=== PATIENT | female | born 1985 | race American Indian/Alaskan Native ===

== ENCOUNTER 2017-06-02 18:52 | Emergency (ER) | payer MEDICAID, OTHER ==
[~2017-06-02] VITALS: Ht 162.6 cm; Wt 85.7 kg
[~2017-06-02 18:52] MED LIST: MINOCYCLINE HC100 MG PO; SPIRONOLACTONE50 MG PO
== END 2017-06-02 19:40 | disposition home or self-care (01) ==
LOC: ED 18:52
DX: J11.1 Influenza due to unidentified influenza virus with other respiratory manifestations (principal); F17.200 Nicotine dependence, unspecified, uncomplicated; Z79.899 Other long term (current) drug therapy
CPT/HCPCS: 99282

== ENCOUNTER 2020-04-20 03:16 | Emergency (ER) | payer OTHER ==
[~2020-04-20] VITALS: Ht 162.6 cm; Wt 84.4 kg
--- NOTE | 2020-04-20 13:52 | EKG ---
[facility] [address] [facility] [place] [address] Signed Normal sinus rhythm Normal ECG When compared with ECG of 10-NOV-2018 22:04, Nonspecific T wave abnormality, improved in Inferior leads Nonspecific T wave abnormality no longer evident in Anterolateral leads Confirmed by AGUSTO LUBIN MD ([id number]) on 04/20/2020 1:52:30 PM Electronically Signed By: AGUSTO LUBIN MD 04/20/20 1352 PATIENT NAME: KASSYNIYARUBEN BORDEN Electrocardiogram DATE OF : 87 PHYSICIAN: AGUSTO LUBIN MD REPORT #: [id number] REPORT IS CONFIDENTIAL AND NOT TO BE RELEASED WITHOUT AUTHORIZATION
== END 2020-04-20 04:44 | disposition home or self-care (01) ==
LOC: ED 03:16
DX: R07.89 Other chest pain (principal); Z87.891 Personal history of nicotine dependence
CPT/HCPCS: 71046; 80053; 83735; 84484; 85025; 85379; 93005; 93010; 99285-25; A9270

== ENCOUNTER 2024-07-11 07:28 | Day surgery (SDC) | payer OTHER ==
[2024-07-09 10:45] VITALS: BP 114/79
[~2024-07-11] VITALS: Ht 162.6 cm; Wt 89.5 kg
[~2024-07-11 07:28] MED LIST changes: +CEFAZOLIN SODIUM 2 GM/20 ML SYR IV SCH; +DEXAMETHASONE SOD PHOS 4 MG/ML VIAL ONE; +FAMOTIDINE 20 MG/ 2 ML VIAL ONE; +HEParin SOD (PORCINE) 5,000 UNIT/ML SDV SUB-Q SCH; +IBLOOD GLUCOSE TEST STRIP 1 EA TEST VI PRN; +KETOROLAC TROMETHAMINE 30 MG/ML VIAL ONE; +LACTATED RINGER'S 1,000 ML IV ONE; +LACTATED RINGER'S 1,000 ML IV SCH; +LIDOCAINE HCL 1% 5 ML SDV INJ ONE; +METOCLOPRAMIDE HCL 10 MG/2 ML SDV ONE; +MIDAZOLAM HCL 2 MG/2 ML VIAL ONE; +fentaNYL citrate 100 MCG/2 ML VIAL ONE; +ondansetron HCL 4 MG/2 ML VIAL ONE; +propofoL 200 MG/20 ML VIAL ONE
--- NOTE | 2024-07-11 07:38 | NUR ---
PT NOT AVAILABLE FOR VISIT. PROVIDED PRAYER.
[2024-07-11 07:40] VITALS: BP 123/62
[2024-07-11] MEDS ORDERED: fentaNYL citrate 50 MCG/ML SDV IV PRN (08:15)
[2024-07-11] MEDS ORDERED: ondansetron HCL 4 MG/2 ML VIAL IV PRN ×2 (08:15→10:30)
[2024-07-11] MEDS ORDERED: PROCHLORPERAZINE EDISYLATE 10 MG/2 ML VIAL IV PRN ×2 (08:15→10:30)
[2024-07-11] MEDS ORDERED: MORPHINE SULFATE 10 MG/ML VIAL IV PRN (08:15)
[2024-07-11] MEDS ORDERED: IBLOOD GLUCOSE TEST STRIP 1 EA TEST VI PRN (08:15)
[2024-07-11] MEDS ORDERED: droPERidol 5 MG/2 ML VIAL IV PRN (08:15)
[2024-07-11] MEDS ORDERED: METOCLOPRAMIDE HCL 10 MG/2 ML SDV IV PRN (08:15)
[2024-07-11] MEDS ORDERED: NALOXONE HCL 0.4 MG SYR IV PRN ×2 (08:15→10:30)
[2024-07-11] MEDS ORDERED: ACETAMINOPHEN 1,000 MG/100 ML VIAL ONE (09:24)
[2024-07-11] MEDS ORDERED: HYDROmorphone HCL 1 MG/ML SYR IV PRN (10:30)
[2024-07-11] MEDS ORDERED: OXYCODONE HCL 5 MG TAB PO PRN (10:30)
--- NOTE | 2024-07-11 10:36 | NUR ---
PT ARRIVES TO DS DEPT FROM PACU VIA STRETCHER. PT REPORTS PAIN IS TOLERABLE AT 05/04, ICE PACK IN PLACE. SITE DRESSING IS C/D/I, NO SIGNS OF BLEEDING AT THIS TIME. REPORT RECEIVED FROM KRYSTLE CHRISTIAN. ICE WATER, APPLESAUCE, AND CRACKERS PROVIDED, PT TOLERATING WITHOUT DIFFICULTY SWALLOWING. PT ON RA W/O2>90%, PT RESPIRATIONS EVEN AND UNLABORED, NO SIGNS OF DISTRESS. CALL LIGHT WITHIN REACH, PT REPORTS NO FURTHER QUESTIONS OR NEEDS AT THIS TIME.
[2024-07-11 10:37] VITALS: BP 113/62
--- NOTE | 2024-07-11 10:47 | NUR ---
07/11/24 1047 SamLiane haddad 1007 PT ARRIVED IN PACU NON RESPONSIVE TO NOXIOUS STIMULI. CHIN LIFT HELD BY RN. 1011 PT REACTIVE AND ABLE TO KEEP AIRWAY OPEN WITH OUT CHIN LIFT. 1015 ICE TO R ARMPIT. 1020 VISITING WITH STAFF. NO C/O'S. 1030 DR AT BEDSIDE. ALL QUESTIONS ANSWERED. 1036 TO DS. REPORT GIVEN TO RN.
--- NOTE | 2024-07-11 11:20 | NUR ---
IN PT ROOM FOR PAIN ASSESSMENT. PT REPORTS NEED TO URINE VOID AT THIS TIME. PT SITS AT BEDSIDE AND REPORTS NO DIZZINESS/NAUSEA. PT STANDS AT BEDSIDE, GAIT IS STEADY. THIS RN STANDBY ASSIST TO RESTROOM FOR URINE VOID OF 500 ML CLEAR/YELLOW URINE. PT BACK TO ROOM AND GETTING DRESSED AT THIS TIME. CALL LIGHT WITHIN REACH.
[2024-07-11 11:34] VITALS: BP 121/79
--- NOTE | 2024-07-11 11:40 | NUR ---
THIS RN IN ROOM FOR DC EDUCATION. PT STATES VERBAL UNDERSTANDING TO DC EDUCATION AT THIS TIME. PT STATES NO FURTHER QUESTIONS AT THIS TIME. PT OFF OF UNIT VIA WC TO PASSENGER SIDE OF AUNT'S VEHICLE. ALL BELONGINGS IN PT POSSESSION AT THIS TIME. ICE PACK AND ICE WATER PROVIDED. PT STATES NO FURTHER QUESTIONS OR NEEDS AT THIS TIME.
[2024-07-11] MEDS ORDERED: SEVOFLURANE 250 ML BTL INH ONE (16:35)
--- NOTE | 2024-07-12 06:27 | OR ---
[facility] [address] [place], [place] [address] Signed DATE OF OPERATION: 07/11/2024 SURGEON: Priti Peter MD PREOPERATIVE DIAGNOSIS: Right axillary mass/accessory breast tissue in nipple (5 x 7 cm). POSTOPERATIVE DIAGNOSIS: Right axillary mass/accessory breast tissue in nipple (5 x 7 cm). PROCEDURE: Excision of right axillary mass/accessory breast tissue and nipple. ESTIMATED BLOOD LOSS: Minimal. INDICATIONS: Carmen is a 39-year-old female, who was asked to see me with a right axillary mass. She told me six years ago when she was for her son this area swelled and she had milk coming out of a small area. She put a rubber band over that area and it stopped the milk. After she was done breast-feeding and never resolved the size. It is about the size of a tennis ball. She said it is right in the crease of her axilla and it is causing her issues on a daily basis. She mentioned it to her drill press operator for metal. The ultrasound was not particularly concerning. I had sent her for a mammogram and it was unremarkable. I explained to her the concept of supernumerary/accessory nipples and breast tissue in mammals. She decided because of the size, she wanted to have it removed. She understands this will be a day surgery and she will go home afterwards. There is risk including, but not limited to bleeding, infection, scarring, change in contour of the skin, recurrent tissue in the same or other areas. She had expressed understanding and wished to proceed. DESCRIPTION OF PROCEDURE: I met with Carmen in our preop area. We could easily identify the large mass in the right axilla with myself and the nurse. We marked that appropriately. After this we took Carmen into the operating room and placed in a supine position. She was placed under general endotracheal tube anesthesia. She was given preoperative antibiotics along with subcutaneous heparin. SCDs were utilized. She was prepped and draped in the usual sterile fashion. We used an oblique elliptical incision in the axilla to excise the lesion. It measured out about 5 x 7 cm and the incision was 11.5 x 4.5 cm. The entire area was excised and she had just a little extra tissue that was indurated Electronically Signed By: PRITI PETER MD 07/12/24 0627 PATIENT NAME: CARMEN ELENA OPERATIVE REPORT DATE OF : [birth year] REPORT #: [id number] PHYSICIAN: PRITI PETER MD PCP: NO PRIMARY CARE PHYSICIAN REPORT IS CONFIDENTIAL AND NOT TO BE RELEASED WITHOUT AUTHORIZATION [facility] [address] [place], [place] [address] Signed somewhat laterally. Then, we took some of that as well. The surrounding tissue was quite pliable and soft and appeared to be usual subcutaneous adipose tissue. We marked the specimen appropriately including the nipple. We passed it off the field for pathologic review along with that additional section. We then injected local anesthetic into the wound. The wound was irrigated and suctioned out until clear. We closed the dermis with multiple interrupted 3-0 subcuticular Monocryl sutures. The skin edges were reapproximated with a running 5-0 fast absorbing plain gut suture. Dry gauze and tape were then applied. She was then awakened from anesthesia, extubated in the OR, and taken to recovery room in stable condition. Priti Peter MD ALB/MODL /[id number] cc: Priti Peter MD [facility] Copies: PRITI PETER MD [facility] ~ Electronically Signed By: PRITI PETER MD 07/12/24 0627 PATIENT NAME: CARMEN ELENA OPERATIVE REPORT DATE OF : [birth year] REPORT #: [id number] PHYSICIAN: PRITI PETER MD PCP: NO PRIMARY CARE PHYSICIAN REPORT IS CONFIDENTIAL AND NOT TO BE RELEASED WITHOUT AUTHORIZATION
--- NOTE | 2024-07-16 14:01 | PATH ---
[facility] [address] [place], [place] [address] Signed SPECIMEN(S): A RIGHT BREAST, RIGHT AXILLARY MASS SPECIMEN(S): B ADDITIONAL RIGHT AXILLARY MASS SPECIMEN SOURCE: A. RIGHT BREAST, RIGHT AXILLARY MASS B. ADDITIONAL RIGHT AXILLARY MASS CLINICAL HISTORY: Long stitch lateral, short stitch superior, double stitch is nipple. FINAL PATHOLOGIC DIAGNOSIS: A. Designated "right axillary mass/breast tissue and nipple": - Benign skin, breast, and fibroadipose tissue; negative for invasive or in situ carcinoma B. Designated "additional excision right axillary mass": - Breast tissue; negative for invasive or in situ carcinoma COMMENT: No gross or microscopic mass lesions are identified. Correlation with the operative impression is needed. [facility] MICROSCOPIC EXAMINATION: Histologic sections of all submitted blocks are examined by light microscopy. These findings, together with the gross examination, support the pathologic diagnosis. GROSS DESCRIPTION: A. The specimen, labeled and designated "Vita Turner, " and designated on the requisition "right axillary mass/breast tissue and nipple," is received in formalin and consists of 135 gram oriented portion of yellow-mccormick fibroadipose tissue that is 9.5 x 8.7 x 3.6 cm and has a ellipse of skin that is 10.3 x 8.6 cm. The skin surface is mccormick-brown and wrinkled with an area of hypopigmentation that is 0.7 x 0.7 cm and contains a black suture identifying the location of the nipple. A short suture is present and identifies the superior margin; a long suture identifies the lateral margin. The specimen is inked as follows: superior - blue; inferior - green; medial - red; lateral - orange; anterior -skin; posterior - black, the area of hypopigmentation on the skin is inked yellow. The PATIENT NAME: NIYA TURNER PATHOLOGY DATE OF : [birth year] REPORT #: [id number] PHYSICIAN: LONA PATHOLOGY PCP: NO PRIMARY CARE PHYSICIAN REPORT IS CONFIDENTIAL AND NOT TO BE RELEASED WITHOUT AUTHORIZATION [facility] [address] [place], [place] [address] Signed specimen is serially sectioned from medial to lateral to reveal approximately 80% of the specimen is a yellow-mccormick greasy adipose tissue and 20% is a pink rubbery fibrous tissue. No discrete mass lesions are grossly identified. Upon palpation of the lateral aspect of the breast no lymph nodes are grossly identified. [employer] sections are submitted in 10 cassettes. Cassette Summary: (A1) area of hypopigmentation identified is nipple on skin, sectioned (A2) fibroadipose tissue deep to nipple (A3-A4) fibroadipose tissue upper inner quadrant (A5-A6) fibroadipose tissue upper outer quadrant (A7-A8) fibroadipose tissue lower outer quadrant (A9-A10) fibroadipose tissue lower inner quadrant Time of collection: 9 PM July 11 2024. Time into formalin: 9 PM July 11 2024. Processor load time: 12 PM July 12, 2024. Total fixation time in formalin: 15 hours The ASCO/CAP guidelines related to HER2 and hormone receptor testing in breast specimens have been met and the specimen has been placed in formalin within one hour and fixed in 10% neutral buffered formalin for 6 to 72 hours. B. The specimen, labeled and designated "Vita Turner, " and designated on the requisition "additional extension right axillary mass," is received in formalin and consists of 6 g unoriented portion of yellow-mccormick fibroadipose tissue that is 3.4 x 3.2 x 1.3 cm. Specimen is inked and serially sectioned revealing approximately 80% of the specimen is yellow-mccormick greasy adipose tissue and 20% is a pink-white rubbery fibrous tissue. No discrete mass lesions are grossly identified. The specimen is entirely submitted consecutively with full cross-sections in each cassette, B1-B13, with bisected cross-sections in B6-B7, B8-B9, B10-B11. Time of collection: 9 PM July 11 2024. Time into formalin: 9 PM July 11 2024. Processor load time: 12 PM July 12, 2024. Total fixation time in formalin: 15 hours The ASCO/CAP guidelines related to HER2 and hormone receptor testing in breast specimens have been met and the specimen has been placed in formalin within one hour and fixed in 10% neutral buffered formalin for 6 to 72 hours. FB (under the direct supervision of a pathologist) PATIENT NAME: NIYA TURNER PATHOLOGY DATE OF : [birth year] REPORT #: [id number] PHYSICIAN: LONA PATHOLOGY PCP: NO PRIMARY CARE PHYSICIAN REPORT IS CONFIDENTIAL AND NOT TO BE RELEASED WITHOUT AUTHORIZATION [address] [address] Signed The Gross Description was prepared using a voice recognition system. The report was reviewed for accuracy; however, sound-alike word errors, addition and/or deletions may occur. If there is any question about this report, please contact Client Services. ADDITIONAL NOTES: Immunohistochemical and/or in situ hybridization studies if performed in this case included appropriate positive controls that reacted as expected. This test was developed and its performance characteristics determined by [facility]. It has not been cleared or approved by the U.S. Food and Drug Administration. The FDA has determined that such clearance or approval is not necessary. This test is used for clinical purposes. It should not be regarded as investigational or for research. [facility] is certified under the Clinical Laboratory Improvement Amendments of 1988 (CLIA) as qualified to perform high complexity clinical laboratory testing. PERFORMING LABORATORY: Technical component was performed by [facility], [address] [place] [id number] (CLIA# [id number]). Professional interpretation was performed by [facility], [address] [place] [address] (CLIA# [id number]). Diagnostician: Gonzalo Hassan MD Pathologist Electronically Signed 07/16/2024 Copies: ~ PATIENT NAME: NIYA TURNER PATHOLOGY DATE OF : [birth year] REPORT #: [id number] PHYSICIAN: ALEXANDALEXA PATHOLOGY PCP: NO PRIMARY CARE PHYSICIAN REPORT IS CONFIDENTIAL AND NOT TO BE RELEASED WITHOUT AUTHORIZATION
== END 2024-07-11 11:40 | disposition home or self-care (01) ==
LOC: DS 07:28
PROVIDERS: ATTEND Colon & Rectal Surgery
PROC: 0JBD0ZZ Excision of Right Upper Arm Subcutaneous Tissue and Fascia, Open Approach (ICD-10-PCS; principal; 2024-07-11 09:00)
DX: R22.31 Localized swelling, mass and lump, right upper limb (principal); Q83.3 Accessory nipple; F17.210 Nicotine dependence, cigarettes, uncomplicated; Z80.3 Family history of malignant neoplasm of breast
CPT/HCPCS: 01710; 88305; 88307; J0131; J0690; J1100; J1644; J1885; J2250; J2405; J2704; J2765; J3010; J7121

== ENCOUNTER 2025-02-07 15:56 | Observation (INO) | payer OTHER ==
[~2025-02-07] VITALS: Ht 162.6 cm; Wt 83.7 kg
[~2025-02-07 15:56] MED LIST changes: -CEFAZOLIN SODIUM 2 GM/20 ML SYR IV SCH; -DEXAMETHASONE SOD PHOS 4 MG/ML VIAL ONE; -FAMOTIDINE 20 MG/ 2 ML VIAL ONE; -HEParin SOD (PORCINE) 5,000 UNIT/ML SDV SUB-Q SCH; -IBLOOD GLUCOSE TEST STRIP 1 EA TEST VI PRN; -KETOROLAC TROMETHAMINE 30 MG/ML VIAL ONE; -LACTATED RINGER'S 1,000 ML IV ONE; -LACTATED RINGER'S 1,000 ML IV SCH; -LIDOCAINE HCL 1% 5 ML SDV INJ ONE; -METOCLOPRAMIDE HCL 10 MG/2 ML SDV ONE; -MIDAZOLAM HCL 2 MG/2 ML VIAL ONE; +SEVOFLURANE 250 ML BTL INH ONE; -fentaNYL citrate 100 MCG/2 ML VIAL ONE; -ondansetron HCL 4 MG/2 ML VIAL ONE; -propofoL 200 MG/20 ML VIAL ONE
[2025-02-07 17:27] LABS: BASOPHILS 0.5 % (0.1-1.2); EOSINOPHILS 0.5 % (0.7-5.8); LYMPHOCYTES 18.6 % (19.3-51.7); MCH 25.2 PG (25.6-32.2); MCHC 31.6 g/dL (32.2-35.5); MCV 79.5 fL (79.4-94.8); MONOCYTES 5.4 % (4.7-12.5); NEUTROPHILS 74.7 % (34.0-71.1); RBC 4.97 M/uL (3.93-5.22)
[2025-02-07 17:50] LABS: ALT (SGPT) 52.0 U/L (14-59); AST (SGOT) 15.0 U/L (15-37); GLOMERULAR FILTRATION RATE,EST 116.0 mL/min (>60); PROTEIN, TOTAL 7.9 g/dL (6.4-8.2); UREA NITROGEN 3.0 mg/dL (7-18)
[2025-02-07] MEDS ORDERED: HYDROmorphone HCL 1 MG/ML SYR IV PRN (20:30)
[2025-02-07] MEDS ORDERED: DEXTROSE 5% - LACTATED RINGERS 1,000 ML IV SCH (20:30)
[2025-02-07] MEDS ORDERED: PIPERACILLIN/TAZOBACTAM 4.5 GM in DEXTROSE 5% 100 ML IV SCH (21:00)
[2025-02-07] MEDS ORDERED: FAMOTIDINE 20 MG/ 2 ML VIAL IV SCH (21:00)
[2025-02-07 21:59] VITALS: BP 119/68
--- NOTE | 2025-02-07 22:30 | NUR ---
pt ARRIVED TO THE FLOOR VIA WHEEL CHAIR. pt ABLE TO GET UP AND WALK TO THE BED. ASSESSMENT AND VITAL SIGNS DONE. ADMISSION DONE. IV ASSESSED, WNL. IVF INFUSING PER ORDER. pt DENIES ANY PAIN AT THIS TIME. pt DENIES ANY OTHER NEEDS AT THIS TIME. CALL LIGHT WITHIN REACH. pt SCORED A MODERATE RISK ON THE SUICIDE SEVERITY SCALE DUE TO LIFE TIME QUESTION 6. pt CURRENTLY DENIES THOUGHTS OF SELF HARM. PER ALGORITHM LICENSED PROVIDER TO DETERMINE IF FURTHER SUICIDE ASSESSMENT NEEDS TO BE DONE.
[2025-02-07 22:59] LABS: CORONAVIRUS COVID-19 AG NEGATIVE (NEGATIVE)
[2025-02-08] VITALS (19 sets, daily range): BP systolic 101–123; BP diastolic 55–72
--- NOTE | 2025-02-08 00:15 | NUR ---
pt RESTING IN THE BED WITH EYES CLOSED. RR EVEN AND UNLABORED. CALL LIGHT WITHIN REACH.
--- NOTE | 2025-02-08 01:30 | NUR ---
IN RM TO DO VITAL SIGNS. pt PROVIDED WITH MOUTH SWABS TO HELP WITH HER DRY MOUTH. pt DENIES ANY OTHER NEEDS AT THIS TIME. CALL LIGHT WITHIN REACH.
--- NOTE | 2025-02-08 03:27 | NUR ---
pt RESTING IN THE BED. pt DENIES ANY NEEDS AT THIS TIME. pt STATE HER PAIN IS TOLERABLE AT THIS TIME. CALL LIGHT WITHIN REACH.
[2025-02-08 05:45] LABS: ALT (SGPT) 41.0 U/L (14-59); AST (SGOT) 15.0 U/L (15-37); GLOMERULAR FILTRATION RATE,EST 117.0 mL/min (>60); PROTEIN, TOTAL 7.2 g/dL (6.4-8.2); UREA NITROGEN 5.0 mg/dL (7-18)
[2025-02-08 06:18] LABS: BLOOD/HGB, URINE NEGATIVE (Negative); KETONE, URINE TRACE (Negative); LEUK ESTERASE, URINE NEGATIVE (negative); NITRITE, URINE NEGATIVE (negative)
--- NOTE | 2025-02-08 06:45 | NUR ---
CALLED ABOUT pt MODERATE SUICIDE RISK DUE TO QUESTION 6. STATES SHE WILL TALK TO pt AFTER THE SURGERY.
--- NOTE | 2025-02-08 07:50 | NUR ---
RECEIVED REPORT FROM ANAHI LEVIN. PATIENT RESTING IN BED ASKING ABOUT A SIP OF WATER. EDUCATED PATIENT TO NOT DRIK/EAT ANYTHING DUE TO ASPIRATION RISK FRO SURGERY. NO OTHER NEEDS A THIS TIME, CALL LIGHT IN REACH, WHITEBOARD UPDATED.
--- NOTE | 2025-02-08 09:17 | NUR ---
UR CLINICAL REVIEW: LORIE, MEETS OBS FOR GALLBLADDER INFLAMMATION CT POSITIVE FOR ACUTE CHOLECYSTITIS, N/V/D, NPO, IV MEDS, SURGERY PLANNED FOR TODAY. [facility] OBS 02/07/2025 @ 2025 ORDER MATCHES REG NO AUTH REQUIRED FOR OBS PER MEDICAID RULES PLAN TO DC TO HOME WHEN MEDICALLY READY. 02/09/2025
[2025-02-08] MEDS ORDERED: GAS-X125 M1 PO (09:28)
[2025-02-08] MEDS ORDERED: PEPTO-BISM262 MG/15 PO (09:29)
--- NOTE | 2025-02-08 09:29 | NUR ---
MED REC COMPLETE
[2025-02-08] MEDS ORDERED: LIDOCAINE HCL 2% 5 ML SDV ONE (09:47)
[2025-02-08] MEDS ORDERED: MIDAZOLAM HCL 2 MG/2 ML VIAL ONE (09:47)
[2025-02-08] MEDS ORDERED: ROCURONIUM BROMIDE 50 MG/5 ML SYR ONE (09:47)
[2025-02-08] MEDS ORDERED: fentaNYL citrate 100 MCG/2 ML VIAL ONE (09:48)
[2025-02-08] MEDS ORDERED: ACETAMINOPHEN 1,000 MG/100 ML VIAL ONE (10:31)
[2025-02-08] MEDS ORDERED: KETOROLAC TROMETHAMINE 30 MG/ML VIAL ONE (10:40)
[2025-02-08] MEDS ORDERED: LIDOCAINE HCL 1% 30 ML SDV ONE (10:40)
[2025-02-08] MEDS ORDERED: DEXAMETHASONE SOD PHOS 4 MG/ML VIAL ONE (10:40)
[2025-02-08] MEDS ORDERED: SUGAMMADEX SODIUM 200 MG/2 ML ML ONE (10:50)
--- NOTE | 2025-02-08 11:23 | NUR ---
INTO SEE PATIENT. PERSONAL HEALTH INFORMATION REVIEWED. PATIENT SISTER AT BEDSIDE. 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 LIVES IN A HOUSE WITH A FEW STEPS IN. PATIENT DOES NOT HAVE DME. DOES DRIVE. DENIES ANY DIFFCULTY PAYING UTLITIES OR OBTAINING FOOD. PATIENT FAMILY TO DRIVE HER HOME WHEN MEDICALLY CLEARED FROM SURGERY. NO CM NEEDS.
[2025-02-08] MEDS ORDERED: HYDROCODONE/ACETA 5/325 TAB PO PRN (12:15)
--- NOTE | 2025-02-08 12:19 | NUR ---
02/08/25 Sheela9 Mattie Hurley 1209- PT ARRIVES TO PACU, SEMI [place] POSITION, NON REACTIVE TO STIMULUS. OPA IN PLACE, BREATHING EVEN AND NON LABORED, LR INFUSING TO RAC IV. ABD SOFT, NON DISTENDED, 4 LAP SITES WITH DRESSINGS CDI. ALL MONITORS IN PLACE.
[2025-02-08] MEDS ORDERED: HYDROmorphone HCL 1 MG/ML SYR IV PRN (12:30)
[2025-02-08] MEDS ORDERED: fentaNYL citrate 50 MCG/ML SDV IV PRN (12:30)
[2025-02-08] MEDS ORDERED: IBLOOD GLUCOSE TEST STRIP 1 EA TEST VI PRN (12:30)
[2025-02-08] MEDS ORDERED: NALOXONE HCL 0.4 MG SYR IV PRN (12:30)
--- NOTE | 2025-02-08 12:50 | NUR ---
RECIEVED REPORT FROM FEDERICO, WINDY AWAKE IN BED. VSS. WATER AND CRACKERS GIVEN. PT DENIES CURRENT NEEDS, DENIES PAIN/NAUSEA AT THIS TIME. CALL LIGHT WITHIN REACH, CPOX IN PLACE, FAMILY AT THE BEDSIDE.
--- NOTE | 2025-02-08 13:59 | NUR ---
Pt's sister came to the nurses station to ask about prescriptions that the pt will be discharged with. She states that the [facility] pharmacy closes today at 5pm and they aren't open tomorrow and wonders if Dr. Francis might be willing to send the prescription in now so they can pick it up today. outpatient clerk Sabine Damico called Dr. Francis who requested we ask Dr. Dash if he would be willing to prescribe [place] 5/325 (see order in emar) for this pt so her family can pick it up today while the pharmacy is open. Dr. Dash will do this. Family updated.
[2025-02-08] MEDS ORDERED: HYDROCODON-ACE1 EA10 PO (14:07)
--- NOTE | 2025-02-08 14:15 | NUR ---
PATIENT LAYING IN BED, VSS. PT REQUESTING PAIN MED FOR ABDOMEN, GIVEN. PT TOLERATED CRACKERS WELL, NO NAUSEA. PT GIVEN SANDWICH BOX, JUICE, AND PUDDING. EDUCATED TO EAT SLOW AND TO STOP WITH ANY FEELING OF NAUSEA OR PAIN. PT ALSO EDUCATED TO CALL US WHEN GETTING UP FOR THE FIRST TIME AFTER PROCEDURE. NO OTHER NEEDS AT THIS TIME CALL LIGHT IN REACH.
--- NOTE | 2025-02-08 15:19 | NUR ---
PT UP TO BATHROOM WITH THIS RN AND ANAHI BORGES. PT REPORTS NO DIZZINESS OR NAUSEA WITH MOVEMENT. PT STATES PAIN WENT DOWN TO A 2 AFTER PAIN MED. PT TOLERATED SANDWICH TRAY WITH NO REPORTS OF NAUSEA OR PAIN. NO NEEDS AT THIS TIME, CALL LIGHT IN REACH.
--- NOTE | 2025-02-08 18:24 | NUR ---
PATIENT IN BED AT THISTIME. SUPERVISOR SHEARING CHARTED VITALS AND I&O'S. SUPERVISOR SHEARING ASSISTED PATIENT TO BATHROOM. CALL LIGHT WITHIN REACH, NO FURTHER NEEDS.
--- NOTE | 2025-02-08 19:43 | NUR ---
PT A&O X4, PLEASANT AND COOPERATIVE, WITH ASSESSMENT. IVF INFUSING RAC. 3 ABD LAP SIATES CDI. FAINT SHELTON, NOT PASSING GAS, ON ROOM AIR, LUNGGS CLEAR BILAT, POST OP CPOC AT BEDSIDE, SCDS IN PLACE. WANTS TO GO FOR A WALK, MEDICATED WITH 1 NORCO, WILL GIVE SECOND NORCO ON RETURN FROM WALK
--- NOTE | 2025-02-08 20:17 | NUR ---
walked up and down the lower and upper nursing station twice. tolerated fair. c/o abd pain on return 08/02, medicated with second norco. back to bed, tolerated good, has voided, no c/o n/v at this time. scds and psot op cpox on. Sister at bedside rooming in.
--- NOTE | 2025-02-08 20:43 | NUR ---
Up to BRP, voided QS, tolerated well, 1PA, back to bed. scds and post op cpox on at bedside, IVF infusing w/o problems
--- NOTE | 2025-02-08 23:25 | NUR ---
pt c/o back shoulder pain and r frontal chest pain, "Robin making a complaint is a side effects from the pain meds as I got two pills earlier. my chest hurt and i cant take a breat. Cpox at bedside, sats 99-100%. pulse 60's, BP wnl. good hand property master. no resp distress noted, anxious RT notified and will call Dr Interiano
--- NOTE | 2025-02-08 23:29 | NUR ---
RT in room
--- NOTE | 2025-02-08 23:37 | NUR ---
EKG WNL. DR Francis NOTIFIED VIA PHONE. NEW ORDERS FOR MAALOX 30CC Q6H PRN ABD PAIN AND OK FOR EKG.. PER MD" GAS PAIN AFTER LAP SURGERY WILL GIVE YOU SHOULDER PAIN AND WHAT APPEARS CHEST PAIN". PT ANXIOUS
[2025-02-08] MEDS ORDERED: MAGNESIUM HYDROXIDE/AL HYDROX 30 ML CUP PO PRN (23:45)
--- NOTE | 2025-02-08 23:47 | NUR ---
PT REASSURED FOR SEVERAL MINUTES, EXPLAINED WHAT TO EXPECT AFTER A LAP EMMA. EXPLAINED SEVERAL TIMES, CALMER. DECLINED ICE OR WARM PADS. WILL CONTINUE TO REASSURE. NO FURTHER C/O CHESTP PAIN IVF INFUSING. SCDS IN PLACE. POST OP CPOX AT BEDSIDE, PT TOLERATING LIQUIDS WELL. NO C/O NV. WILL MEDICATED WITH MAALOX HER REQUESTS
--- NOTE | 2025-02-09 00:04 | NUR ---
medicated with Maalax per abd pain
--- NOTE | 2025-02-09 00:07 | NUR ---
Pt c/o feeling nauseated, medicated with 2.5mg IV Compazine per n/v. Pt ambulated hallways, tolerated well, back to bed, scds in place, cpox at bedside, no c/o pain. Up to brp, voided,
[2025-02-09 01:41] VITALS: BP 105/65
--- NOTE | 2025-02-09 01:43 | NUR ---
AWAKE, NO FURTHER C/O N/V, STATED 'I CAN FEEL THE GAS ROLLING IN", DENIES PASSING GAS AT THIS TIME. C/O ABD PAIN. MEDICATED WITH 1 NORCO 6/10 ABD PAIN. COOPERATIVE WITH SECOND ASSESSMENT AND VITALS, TOLERATING FLUIDS. SCDS IN PLACE
--- NOTE | 2025-02-09 01:48 | NUR ---
AWAKE, PLAYING WITH PHONE, NO FURTHER C/O PAIN, IVF INFUSING, TOLERATING LIQUIDS WELL, NO C/O N/V, DENIES FURTHER C/O CHEST, SHOULDER OR ABD PAIN AT THIS TIME, DENIES PASSING GAS OR BURPING. SCDS IN PLACE, REPOSITIONS SELF IN BED. MORE CALMER. SISTER ROOMING IN
--- NOTE | 2025-02-09 03:57 | NUR ---
Uses call light. Up to BRP, 1PA voided QS yellow urine. Walked up and down nursing station twice, tolerated well, denies need for pain meds at this time. Not passing gas or burping, Back to bed, tolerated well. ice to abd. Repositions self in bed. SCD's off at this time
[2025-02-09 06:28] VITALS: BP 107/62
--- NOTE | 2025-02-09 06:29 | NUR ---
MANAGING DIRECTOR ATLAS OBTAINED VITALS AND I&O. PT STATES NO NEEDS AT THIS TIME. CALL LIGHT WITHIN REACH.
[2025-02-09 06:45] VITALS: BP 107/62
--- NOTE | 2025-02-09 07:10 | NUR ---
RECIEVED REPORT FROM ANAHI HENLEY. PT IS RESTING IN BED WITH EYES OPEN. FAMILY MEMBER IS AT BEDSIDE. CALL LIGHT AND PERSONAL BELONGINGS ARE WITHIN REACH.
--- NOTE | 2025-02-09 08:09 | NUR ---
PATIENT IN BED AT THIS TIME. JUNIOR SYSTEMS ENGINEER CHARTED HOURLY ROUNDS. CALL LIGHT WITHIN REACH, NO FURTHER NEEDS.
[2025-02-09 08:52] VITALS: BP 114/65
[2025-02-09 09:00] VITALS: BP 114/65
--- NOTE | 2025-02-09 09:00 | NUR ---
PT IS SITTING UP IN BED WITH BREAKFAST TRAY AT THIS TIME. FAMILY MEMBER AND CPOX ARE AT BEDSIDE. DR. MAHAN ROUNDING ON PT AT THIS TIME. FULL ASSESSMENT COMPLETE AND DOCUMENTED IN CHART. PT DENIES ANY PAIN, NUMBNESS, OR TINGLING. MORNING MEDICATIONS ADMINISTERED PER THE EMAR. SURGICAL SITES VISUALIZED; COVERED BY BAND-AIDS. BAND-AIDS ARE CLEAN, DRY AND INTACT. PT VERBALIZED GAS DISCOMFORT; PT EDUCATED ON SURGICAL PROCEDURE AND THE BENEFITS OF AMBULATION TO HELP ALEVIATE THIS DISCOMFORT. PT DENIES ANY FURTHER NEEDS AT THIS TIME. CALL LIGHT AND PERSONAL BELONGINGS ARE WITHIN REACH.
--- NOTE | 2025-02-09 14:36 | EKG ---
[facility] [address] [facility] [place] [address] Signed Normal sinus rhythm Normal ECG When compared with ECG of 20-APR-2020 03:20, No significant change was found Confirmed by KATELYNN SARKAR MD ([id number]) on 02/09/2025 2:36:12 PM Electronically Signed By: KATELYNN SARKAR 02/09/25 1436 PATIENT NAME: NIYA ELENA Electrocardiogram DATE OF : 87 PHYSICIAN: KATELYNN SARKAR REPORT #: [id number] REPORT IS CONFIDENTIAL AND NOT TO BE RELEASED WITHOUT AUTHORIZATION
--- NOTE | 2025-02-12 09:53 | PATH ---
[facility] [address] [place], [place] [address] Signed SPECIMEN(S): A GALLBLADDER AND GALLSTONES SPECIMEN SOURCE: A. GALLBLADDER AND GALLSTONES CLINICAL HISTORY: Acute cholecystitis. FINAL PATHOLOGIC DIAGNOSIS: Gallbladder and gallstones: - Acute and chronic calculous cholecystitis. [facility] MICROSCOPIC EXAMINATION: Histologic sections of all submitted blocks are examined by light microscopy. These findings, together with the gross examination, support the pathologic diagnosis. GROSS DESCRIPTION: The specimen, labeled and designated "Vita Elena " and designated on the requisition "gallbladder and gallstones," is received in formalin and consists of Specimen: Previously opened gallbladder. Dimensions: 11.4 x 4.8 x 1.6 cm. Serosa: Pale pink and smooth. Cystic Duct: Inked, contains calculi. Calculi: Multiple yellow-green smooth, angular and spherical calculi that measure 3.8 x 2.5 x 2.4 cm in aggregate. Mucosa: [place] and velvety. Wall thickness: 0.1-0.9 cm. Lymph node: No pericystic lymph nodes are grossly identified. Additional: None. [employer] sections are submitted in (A1). FB (under the direct supervision of a pathologist) The Gross Description was prepared using a voice recognition system. The report was reviewed for accuracy; however, sound-alike word errors, addition and/or deletions may occur. If there is any question about this report, please contact Client Services. ADDITIONAL NOTES: Immunohistochemical and/or in situ hybridization studies if performed in this PATIENT NAME: NIYA ELENA PATHOLOGY DATE OF : 87 REPORT #: [id number] PHYSICIAN: LONA JOLLEY PCP: [facility] REPORT IS CONFIDENTIAL AND NOT TO BE RELEASED WITHOUT AUTHORIZATION [facility] [address] [place], [place] [address] Signed case included appropriate positive controls that reacted as expected. This test was developed and its performance characteristics determined by [facility]. It has not been cleared or approved by the U.S. Food and Drug Administration. The FDA has determined that such clearance or approval is not necessary. This test is used for clinical purposes. It should not be regarded as investigational or for research. [facility] is certified under the Clinical Laboratory Improvement Amendments of 1988 (CLIA) as qualified to perform high complexity clinical laboratory testing. PERFORMING LABORATORY: Technical component was performed by [facility], [address] [place] [id number] (CLIA# [id number]). Professional interpretation was performed by [facility] [place] [facility] - [address] [place] [address] (CLIA#: [id number]). Diagnostician: Arash Mosley MD Pathologist Electronically Signed 02/12/2025 Copies: ~ PATIENT NAME: NYIA ELENA PATHOLOGY DATE OF : 87 REPORT #: [id number] PHYSICIAN: LONA JOLLEY PCP: PAUL MUR[facility] REPORT IS CONFIDENTIAL AND NOT TO BE RELEASED WITHOUT AUTHORIZATION
== END 2025-02-09 11:15 | disposition home or self-care (01) ==
LOC: ED 15:56 → MS 15:59
PROVIDERS: Emergency Medicine; ADMIT Surgery; ATTEND Surgery
DX: K80.00 Calculus of gallbladder with acute cholecystitis without obstruction (principal); K82.8 Other specified diseases of gallbladder; K66.0 Peritoneal adhesions (postprocedural) (postinfection); K76.0 Fatty (change of) liver, not elsewhere classified; J11.1 Influenza due to unidentified influenza virus with other respiratory manifestations
CPT/HCPCS: 00790; 36415; 71045; 76705; 80053; 81003; 83690; 84703; 85025; 88304; 93005; 93010; 94762; 96365; 96366; 96375; 96376; 99285-25; A9270; G0378; J0131; J1100; J1885; J2003; J2250; J2405; J2543; J2704; J3010; J3490; J7121